=== PATIENT | female | born 1970 | race Caucasian/White ===

== ENCOUNTER 2017-08-16 07:47 | Day surgery (SDC) | payer BC ==
[2017-08-15 11:55] VITALS: BMI 24.0
[2017-08-16] MEDS ORDERED: BUPIVACAINE 0.5% /EPI 1:200,000 10 ML VIAL NR ONE (08:30)
[2017-08-16] MEDS ORDERED: ACETAMINOPHEN 1000 MG/100 ML VIAL (NON FORMULARY) IVPB ONE ×2 (09:25→11:01)
--- NOTE | 2017-08-16 09:25 | HP ---
History & Physical Update - History History: No Change - Physical Physical: No Change - Assessment Assessment: No Change - Plan Plan: No Change (08/15/17 note)
[2017-08-16] MEDS ORDERED: IBUPROFEN 800 MG/8 ML IJ IVPB PRN (09:26)
[2017-08-16] MEDS ORDERED: DEXTROSE 5%-0.45% SALINE 1,000 ML IV SCH (09:30)
[2017-08-16] MEDS ORDERED: LIDOCAINE HCL/PF 2% SDV 5ML VIAL ONE (09:54)
[2017-08-16] MEDS ORDERED: MIDAZOLAM HCL 2 MG/2 ML SINGLE DOSE VIAL ONE (09:55)
[2017-08-16] MEDS ORDERED: PROPOFOL 20 ML ONE ×2 (09:55)
[2017-08-16] MEDS ORDERED: ceFAZolin SODIUM 1 GM VIAL ONE (10:13)
[2017-08-16] MEDS ORDERED: ceFAZolin SODIUM 1 GM VIAL IVPB ONE (10:14)
[2017-08-16] MEDS ORDERED: DEXAMETHASONE SOD PHOSPHATE 4 MG/1 ML VIAL ONE (10:20)
[2017-08-16] MEDS ORDERED: KETOROLAC TROMETHAMINE 30 MG/1 ML VIAL ONE (10:24)
[2017-08-16] MEDS ORDERED: oxyCODONE HCL 5 MG TABLET PO PRN (11:01)
[2017-08-16] MEDS ORDERED: ONDANSETRON 4 MG/2 ML VIAL IVPUSH PRN (11:01)
[2017-08-16] MEDS ORDERED: ACETAMINOPHEN 1000 MG/100 ML VIAL (NON FORMULARY) IVPB PRN (11:01)
[2017-08-16] MEDS ORDERED: LACTATED RINGERS SOLUTION 1,000 ML IV SCH (11:15)
[2017-08-16 12:17] VITALS: TEMP 98
--- NOTE | 2017-08-16 12:31 | OP ---
DATE OF OPERATION: 08/16/2017 PREOPERATIVE DIAGNOSIS: Stress urinary incontinence. POSTOPERATIVE DIAGNOSIS: Stress urinary incontinence. PROCEDURE PERFORMED: Retropubic suburethral sling placement and cystoscopy. ANESTHESIA: General. ANESTHESIOLOGIST: Lulu Oneill M.D. SURGEON: David Cui M.D. ESTIMATED BLOOD LOSS: 25 mL. DRAINS: Findings. FINDINGS: A hypermobile urethra with leakage INDICATIONS: The patient is a 47-year-old female who comes to me after 2 failed attempts by another surgeon to repair stress urinary incontinence. Urodynamics reveals that she does have a small-capacity, high-pressure bladder. However, she also has very low leak point pressures from a urethra which is unable to hold in the urine. I offered the patient a retropubic suburethral sling to address this intrinsic sphincter deficiency and hypermobile urethra. The risks, benefits and alternatives were discussed, including the risks of bleeding, infection, sling rejection or erosion, the possibility the sling might be too tight or too light, resulting in either urinary retention or continued incontinence which might require a secondary procedure, and leg pain. She understands these risks and agrees to the procedure. DESCRIPTION OF PROCEDURE: The patient was brought to the OR and placed on the table in the supine position. She was given general anesthesia and IV antibiotics, and placed in the modified lithotomy position. The groin was prepped and draped sterilely. The middle third of the urethra was marked out with a marking pen and vasopressin was injected to hydrodissect the vaginal mucosa off the periurethral tissues. An incision was made over the middle portion of the urethra. The vaginal mucosa was sharply dissected in a lateral fashion off of the periurethral tissues. The bladder was then emptied. The pubic bone was palpated and 1-1/2 fingerbreadths on either side was marked out for insertion of the trocars. A combination of Marcaine, epinephrine and saline was injected along each of these tracts from the retropubic region down to the area just lateral to the urethra inside the incision. Stab incisions were made bilaterally, and the trocars were passed bilaterally under fingertip control from the retropubic area through the space of Retzius down to just lateral to the urethra inside the vaginal incision. Cystoscopy was then performed. No evidence of any perforation or bleeding was seen in the bladder. The sling was then connected to the trocars and pulled up from the vaginal incision to the retropubic space. Cystoscopy was repeated. There was no evidence of perforation or sling material seen. A stress test was then performed on the bladder. The bladder was pushed down when it was full, and there was copious leakage. The sling was tightened very slowly until the point where there was no more leakage. The sling was rested flat on the midportion of the urethra. The sleeves around the sling were then removed. The sling remained in place. The excess sling material was excised. The vaginal incision was then closed using 3-0 Vicryl suture. No persistent bleeding was noted. The Powell catheter was removed. The retropubic stab incisions were closed with Dermabond. The patient was woken up. Dashawn [id number]
[2017-08-16 19:14] VITALS: BP 124/70; PULSE 68
== END 2017-08-16 17:30 | disposition home or self-care (01) ==
LOC: JASU-SURG 07:47
PROVIDERS: ATTEND Urology
PROC: 0TSD0ZZ Reposition Urethra, Open Approach (ICD-10-PCS; principal; 2017-08-16 09:00)
DX: N39.3 Stress incontinence (female) (male) (principal)
CPT/HCPCS: 84703; 94760; J0131